=== PATIENT | female | born 1960 | race Caucasian/White ===

== ENCOUNTER 2022-05-22 08:30 | Inpatient (IN) ==
[~2022-05-22 08:30] MED LIST: Buffered Lidocaine 1% SYRIN 1 ml INTRADERM ONE; Lactated Ringers 1000 ml BAG 1,000 ML IV SCH
[2022-05-22] MEDS ORDERED: ceFAZolin 2 GM PREMIX 2 GM/50 ML BAG ONE (08:36)
[2022-05-22] MEDS ORDERED: ROPIVACAINE 5 MG/ML 30 ML BTL (0.5%) ONE (09:53)
[2022-05-22] MEDS ORDERED: Midazolam 2 mg/2 ml VIAL 1 mg/ml 2 ml VIAL (2 mg) ONE ×2 (09:53→11:08)
[2022-05-22] MEDS ORDERED: Lidocaine 1% MPF 5 ML VIAL ONE (09:53)
[2022-05-22] MEDS ORDERED: Morphine 2 MG/ML SYRINGE IV PRN (12:03)
[2022-05-22] MEDS ORDERED: Ondansetron 4 mg VIAL 2 MG/ML 2 ml VIAL IV PRN ×2 (12:03→12:07)
[2022-05-22] MEDS ORDERED: Ondansetron ODT 4 mg TAB 4 MG TAB PO PRN (12:03)
[2022-05-22] MEDS ORDERED: Magnesium Hydroxide LIQ 30 ML UDC PO PRN (12:03)
[2022-05-22] MEDS ORDERED: Lactulose 30 ml UDC PO PRN (12:03)
[2022-05-22] MEDS ORDERED: HYDROmorphone 1 MG/1 ML SYRINGE IV PRN (12:07)
[2022-05-22] MEDS ORDERED: fentaNYL 100 mcg/2 ml 50 MCG/ML VIAL IV PRN (12:07)
[2022-05-22] MEDS ORDERED: Acetaminophen IV 1 GM/100ML 1,000 MG/100 ML BAG IV PRN (12:07)
[2022-05-22] MEDS ORDERED: Naloxone 0.4 mg VIAL 0.4 mg/ml 1 ml VIAL IV PRN (12:07)
[2022-05-22] MEDS ORDERED: Ropivacaine 5 MG/ML 20 ML VIAL 0.5% (100 MG) ONE (12:25)
[2022-05-22] MEDS ORDERED: Propofol 10 MG/ML 20 ML BTL ONE (12:29)
[2022-05-22] MEDS ORDERED: Acetaminophen IV 1 GM/100ML 1,000 MG/100 ML BAG IV ONE (14:19)
[2022-05-22] MEDS ORDERED: fentaNYL 100 mcg/2 ml 50 MCG/ML VIAL ONE (14:24)
[2022-05-22] MEDS: Lactated Ringers 1000 ml BAG 1,000 ML IV SCH (16:00)
[2022-05-22] MEDS ORDERED: Ondansetron 4 mg VIAL 2 MG/ML 2 ml VIAL ONE (16:10)
[2022-05-22] MEDS ORDERED: Metoclopramide 5 MG/ML VIAL (10 mg) IV PRN (18:06)
[2022-05-22] MEDS: ceFAZolin 1 GM ADVAN 1 GM in NS 0.9% 50 ML 50 ML IVPB SCH (20:07)
[2022-05-22] MEDS: Magnesium Hydroxide LIQ 30 ML UDC PO SCH (21:52)
[2022-05-23] MEDS: Lactated Ringers 1000 ml BAG 1,000 ML IV SCH (02:29)
[2022-05-23] MEDS: ceFAZolin 1 GM ADVAN 1 GM in NS 0.9% 50 ML 50 ML IVPB SCH ×2 (04:25→11:32)
[2022-05-23 06:27] LABS: Hematocrit 36 % (35-47); Hemoglobin 11.4 g/dL (12.0-16.0); Platelet Count 247 10^3/uL (150-450)
[2022-05-23 06:43] LABS: Calcium 8.4 mg/dL (8.6-10.3); Potassium 4.3 mmol/L (3.5-5.0); eGFR CKD-EPI 83.8 (>60)
[2022-05-23] MEDS: Magnesium Hydroxide LIQ 30 ML UDC PO SCH (07:53)
[2022-05-23] MEDS ORDERED: Vitamin THERAPEUTIC TAB PO SCH (09:00)
[2022-05-23 11:15] VITALS: BP 137/71
== END 2022-05-23 15:00 | disposition home or self-care (01) | DRG 302 ==
LOC: AA 08:30 → INTOOBSV 08:30 → SSU 12:03
PROVIDERS: ADMIT Orthopaedic Surgery Adult Reconstructive Orthopaedic Surgery; ATTEND Orthopaedic Surgery Adult Reconstructive Orthopaedic Surgery